=== PATIENT | female | born 1980 | race Caucasian/White ===

== ENCOUNTER 2020-09-04 00:28 | Emergency (ER) | payer OTHER ==
[~2020-09-04] VITALS: Ht 157.5 cm; Wt 65.8 kg
[2020-09-04] MEDS ORDERED: PANTOPRAZOLE SO40 MG PO (00:48)
[2020-09-04] MEDS ORDERED: PENICILLIN V P500 MG PO (03:12)
== END 2020-09-04 03:48 | disposition home or self-care (01) ==
LOC: ED 00:28
PROC: 0CQ0XZZ Repair Upper Lip, External Approach (ICD-10-PCS; principal; 2020-09-04)
DX: S02.5XXA Fracture of tooth (traumatic), initial encounter for closed fracture (principal); S01.511A Laceration without foreign body of lip, initial encounter; S60.221A Contusion of right hand, initial encounter; V22.4XXA Motorcycle driver injured in collision with two- or three-wheeled motor vehicle in traffic accident, initial encounter; F17.200 Nicotine dependence, unspecified, uncomplicated; Z79.899 Other long term (current) drug therapy
CPT/HCPCS: 40650; 70450; 70486; 72125; 73130; 99284-25; A9270

== ENCOUNTER 2022-09-28 22:45 | Observation (INO) | payer OTHER ==
[~2022-09-28] VITALS: Ht 157.5 cm; Wt 63.7 kg
--- OUTSIDE RECORDS SUMMARY | ~2022-09-28 | XMS | Continuity of Care Document ---
Demographics + + + | Address | [address] | | | [place] [address] | + + + | Preferred Language | Unknown | + + + | Marital Status | | + + + | Jehovah'S Witness Affiliation | Unknown | + + + | Race | White | + + + | Ethnic Group | Unknown | + + + Author + + + | Author | [facility] | + + + | Organization | [facility] | + + + | Address | [address] | | | [place] [address] | + + + | Phone | | + + + Care Team Providers + + + + | Care Pmp Certified Project Manager Name | Role | Phone | + + + + Unavailable | Unavailable | + + + + Allergies and Intolerances + + + + + + | date | description | facility | reaction | severity | + + + + + + | (no date) | No Known | [facility] | (no reaction) | (no severity) | | | Allergies | | | | + + + + + + Encounters No information. Functional Status No information. Immunizations No information. Medications No information. Problems + + + + | date | description | facility | + + + + | 2022-09-22 11:54 | ENCNTR SCREEN MAMMOGRAM | [facility] | | | FOR MALIGNANT NE | | + + + + | 2022-09-22 11:54 | ENCNTR SCREEN MAMMOGRAM | [facility] | | | FOR MALIGNANT NEOPLASM OF | | | | BREAST | | + + + + | 2022-09-22 12:00 | ENCNTR SCREEN MAMMOGRAM | [facility] | | | FOR [facility]NA[facility] NE | | + + + + Procedures No information. Results/Labs No information. Social History No information. Vital Signs No information."
--- OUTSIDE RECORDS SUMMARY | ~2022-09-28 | XMS | Continuity of Care Document ---
Demographics + + + | Address | [address] | | | [place] [address] | + + + | Preferred Language | Unknown | + + + | Marital Status | | + + + | Tenriism Affiliation | Unknown | + + + | Race | White | + + + | Ethnic Group | Unknown | + + + Author + + + | Author | [facility] | + + + | Organization | [facility] | + + + | Address | [address] | | | [place] [address] | + + + | Phone | | + + + Care Team Providers + + + + | Care Department Head [employer] Name | Role | Phone | + [...]
--- OUTSIDE RECORDS SUMMARY | ~2022-09-28 | XMS | Continuity of Care Document ---
Demographics + + + | Address | [address] | | | [place] [address] | + + + | Preferred Language | Unknown | + + + | Marital Status | | + + + | Shinto Affiliation | Unknown | + + + | Race | White | + + + | Ethnic Group | Unknown | + + + Author + + + | Author | [facility] | + + + | Organization | [facility] | + + + | Address | [address] | | | [place] [address] | + + + | Phone | | + + + Care Team Providers + + + + | Care Marine Oiler Name | Role | Phone | + [...]
[~2022-09-28 22:45] MED LIST: PANTOPRAZOLE SO40 MG PO; PENICILLIN V P500 MG PO
[2022-09-28] MEDS ORDERED: OMEPRAZOLE20 MG PO (22:55)
[2022-09-28] MEDS ORDERED: METOPROLOL SUCC50 MG PO (22:55)
[2022-09-28] MEDS ORDERED: HYDROXYZINE HCL50 MG PO (22:56)
[2022-09-28] MEDS ORDERED: BUPROPION XL150 MG PO (22:56)
[2022-09-28 23:13] LABS: BASOPHILS 1.5 % (0-2); EOSINOPHILS 3.5 % (0-6); HEMOGLOBIN 14.6 g/dL (12.0-18.0); LYMPHOCYTES 33.7 % (24-44); MCH 31.3 (27-36); MCHC 33.9 g/dl (30-36); MCV 92.5 fl (81-99); MONOCYTES 8.5 % (0-12); NEUTROPHILS 52.8 % (39-80); PLATELET COUNT 257 K/uL (140-440); RBC 4.64 M/ul (4.3-5.7); RDW 12.7 (10.5-15.0)
[2022-09-28 23:28] LABS: ALBUMIN 3.9 g/dL (3.4-5.0); ALBUMIN/GLOBULIN RATIO 1.08 (1.1-2.4); ANION GAP 10.6 (7-21); BILIRUBIN, TOTAL 0.2 ng/dL (0.2-1.0); BUN/CREATININE RATIO 14.13 (6.0-28.6); CALCIUM 9.6 mg/dL (8.5-10.1); CREATININE, SERUM 0.92 mg/dL (0.55-1.02); POTASSIUM 3.6 mmol/L (3.5-5.1); PROTEIN, TOTAL 7.5 g/dL (6.4-8.2)
[2022-09-28 23:46] LABS: BILIRUBIN, URINE NEGATIVE (negative); BLOOD/HGB, URINE NEGATIVE (Negative); KETONE, URINE NEGATIVE (Negative); LEUK ESTERASE, URINE NEGATIVE (negative); NITRITE, URINE NEGATIVE (negative)
[2022-09-29 03:08] VITALS: BP 148/96
[2022-09-29 04:57] VITALS: BP 133/89
--- NOTE | 2022-09-29 08:09 | CONS ---
[facility] [address] [place], [place] [address] Signed DATE OF CONSULTATION: 09/29/2022 CHIEF COMPLAINT: Epigastric abdominal pain. HISTORY OF PRESENT ILLNESS: Mack is a 42-year-old female, who 1 hour after eating last night developed epigastric abdominal pain with nausea. It was quite severe. She came to the emergency room for evaluation. Vital signs were unconcerning. She seemed to be tender in the epigastric area, but complained of diffuse abdominal pain. Laboratory work was unremarkable. EKG was unremarkable. Beta-hCG was negative. CT scan of the chest, abdomen and pelvis showed what might be some gallbladder wall thickening. The ultrasound then confirmed that the gallbladder wall was around 4 mm. She has a single small stone in the neck of the gallbladder. Common bile duct unremarkable at 5 mm. There was a negative Moore sign. She had received some IV fluids and pain control. I have been asked as a general surgeon to admit her overnight. She received Rocephin and Flagyl as well. She has done well overnight, although the Dilaudid made her little nauseated. We switched her over to some Toradol. This morning, she is doing well and her son is in the room with her. PAST MEDICAL HISTORY: Hypertension, anxiety and gastroesophageal reflux disease. PAST SURGICAL HISTORY: Includes an IUD episiotomy, upper and lower endoscopy with Dr. Brumfield. SOCIAL HISTORY: She smokes about half a pack of cigarettes a day. She does not drink. She has three children, all born vaginally. She lives in [place], [place]. She works for [employer]. She prefers the [facility]. Elizabeth Norman is her primary care provider. She drives. She is to [place] at [phone]. Her son is Jasson at [phone]. FAMILY HISTORY: Mom had colon cancer at age 50. Dad had prostate cancer. REVIEW OF SYSTEMS: She had 10 systems reviewed and she filled in a moderate amount of details as listed above. ALLERGIES: None. MEDICATIONS: 1. Metoprolol ER 50 mg p.o. daily. Electronically Signed By: JUSTUS ALLISON MD 09/29/22 0809 PATIENT NAME: MACK NANCE CONSULTATION DATE OF : 84 REPORT #: [id number] PHYSICIAN: JUSTUS ALLISON MD PCP: ELIZABETH NORMAN PA-C REPORT IS CONFIDENTIAL AND NOT TO BE RELEASED WITHOUT AUTHORIZATION [facility] [address] [place], [place] [address] Signed 2. Omeprazole 20 mg p.o. daily. 3. Hydroxyzine 50 mg p.o. q.6 hours p.r.n. for anxiety. PHYSICAL EXAMINATION: VITAL SIGNS: Her blood pressure is 133/89. Her heart rate was up a little bit from some pain before the Toradol at 90, respiratory rate 18, temperature is 97.6. She is 100% on room air. She is 5 feet 2 inches at 63 kg. Her body mass index is 25. GENERAL: Mack is a 42-year-old female, lying supine in her hospital bed. Her son is in the room along with the nurse. She is in no acute distress. She is not jaundiced. She is not systemically ill or toxic. LUNGS: Clear to auscultation bilaterally. HEART: Regular rate and rhythm without murmurs. ABDOMEN: Soft, flat and nontender. LABORATORY DATA: Her white blood count is 8, hemoglobin 14. Electrolytes unremarkable. UA negative. Total bilirubin 0.2, AST 18, ALT 33, alkaline phosphatase 48, lipase 183, albumin 3.9. Beta-hCG negative. EKG is normal sinus rhythm. RADIOGRAPHIC STUDIES: CT scan of the chest, abdomen and pelvis shows a little bit of gallbladder wall thickening. Ultrasound showed the fatty liver and the gallbladder wall is about 4 mm. There is a single small stone in the neck of the gallbladder. Common bile duct is 5 mm. The Moore sign is negative. ASSESSMENT AND PLAN: Mack is a 42-year-old female, who presents with chronic cholecystitis and cholelithiasis with significant biliary colic. I brought her a brochure on the gallbladder. We have reviewed it page by page. She understands the location and function of the gallbladder. We have discussed laparoscopic versus open cholecystectomy along with possible ERCP. She understands the expected intraop and postop course. There is risk including, but not limited to bleeding, infection, scarring, change in contour of the skin, damage to bowel, damage to the main bile duct, incisional hernias and other unforeseen comorbidities. She would like to proceed with gallbladder surgery later this morning. I have two small cases to do before we can bring her down to the OR. She has expressed understanding and would like to proceed. Justus Allison MD ALB/MODL Electronically Signed By: JUSTUS ALLISON MD 09/29/22 0809 PATIENT NAME: MACK NANCE CONSULTATION DATE OF : 84 REPORT #: [id number] PHYSICIAN: JUSTUS ALLISON MD PCP: ELIZABETH NORMAN PA-C REPORT IS CONFIDENTIAL AND NOT TO BE RELEASED WITHOUT AUTHORIZATION [facility] [address] [place] [address] Signed /[id number] cc: MD Elizabeth Avila PA-C Copies: JUSTUS ALLISON MD ~ Electronically Signed By: JUSTUS ALLISON MD 09/29/22 0809 PATIENT NAME: MACK NANCE CONSULTATION DATE OF : 84 REPORT #: [id number] PHYSICIAN: JUSTUS ALLISON MD PCP: ELIZABETH NORMAN PA-C REPORT IS CONFIDENTIAL AND NOT TO BE RELEASED WITHOUT AUTHORIZATION
[2022-09-29 08:41] VITALS: BP 148/91
[2022-09-29 12:35] VITALS: BP 131/82
[2022-09-29] MEDS ORDERED: MULTI VITAMIN1 EACH PO (13:49)
[2022-09-29] MEDS ORDERED: FISH OIL 1,0001 EAC6 PO (13:49)
[2022-09-29] MEDS ORDERED: PROBIOTIC1 EAC1 PO (13:49)
[2022-09-29 14:43] VITALS: BP 129/73
[2022-09-29] MEDS ORDERED: HYDROCODON-ACE1 EAC8 PO (15:18)
[2022-09-29 16:51] VITALS: BP 128/82
--- NOTE | 2022-09-29 22:39 | EKG ---
[facility] [address] [facility] [place] [address] Signed Normal sinus rhythm Normal ECG No previous ECGs available Confirmed by Last Fuentes MD () on 09/29/2022 10:39:06 PM Electronically Signed By: LAST FUENTES MD 09/29/229 PATIENT NAME: EVELYN NANCE Electrocardiogram DATE OF : 84 PHYSICIAN: LAST FUENTES MD REPORT #: [id number] REPORT IS CONFIDENTIAL AND NOT TO BE RELEASED WITHOUT AUTHORIZATION
--- NOTE | 2022-10-02 07:01 | OR ---
[facility] [address] [place], [place] [address] Signed DATE OF OPERATION: 09/29/2022 SURGEON: Justus Allison MD PREOPERATIVE DIAGNOSIS: Chronic cholecystitis with cholelithiasis. POSTOPERATIVE DIAGNOSES: 1. Chronic cholecystitis with cholelithiasis. 2. Cholesterolosis. PROCEDURE: Laparoscopic cholecystectomy with intraoperative cholangiogram. ESTIMATED BLOOD LOSS: Minimal. FINDINGS: Mack had a mildly dilated common bile duct on the intraoperative cholangiogram. No obvious filling defects. The contrast flowed readily through the ampulla into the duodenum. She had umsa-[id number] cholesterolosis. There were two stones each measuring a little over 5 mm. INDICATIONS: Mack is a 42-year-old female, who yesterday developed epigastric abdominal pain and nausea about an hour after she ate. It was quite severe. She came to emergency room for evaluation. She seemed to be tender in the epigastric area. Laboratory work was unremarkable. CT scan of the chest, abdomen and pelvis showed possibly some gallbladder wall thickening, but no obvious stones. An ultrasound was ordered and she does have a fatty liver. The gallbladder wall was a little thick at 4 mm. She seemed to have a single small stone in the neck of her gallbladder. The common bile duct was about 5 mm. She had a negative sonographic Moore sign. I have been asked to admit her in the middle of the night by the ER physician. She received Rocephin and Flagyl, IV fluids and pain control. This morning, she is doing quite well. Her son was with her in the room. I brought a brochure to share with her on the gallbladder. We discussed the location and function of the gallbladder. We reviewed laparoscopic versus open cholecystectomy. She understands expected intraop and postop course. We did review the risk including, but not limited to bleeding, infection, scarring, change in contour of the skin, damage to bowel, damage to main bile duct, incisional hernias and other unforeseen comorbidities. We also discussed the possibility of an ERCP to receive Electronically Signed By: JUSTUS ALLISON MD 10/02/22 0701 PATIENT NAME: MACK NANCE OPERATIVE REPORT DATE OF : 84 REPORT #: [id number] PHYSICIAN: JUSTUS ALLISON MD PCP: ELIZABETH GUEVARA PA-C REPORT IS CONFIDENTIAL AND NOT TO BE RELEASED WITHOUT AUTHORIZATION [facility] [address] [place] [id number] Signed stones in the common bile duct. She had expressed understanding and wished to proceed. PROCEDURE IN DETAIL: Mack was taken in the operating room and placed in the supine position under general endotracheal tube anesthesia. She was already on preoperative antibiotics along with subcutaneous Lovenox. SCDs were utilized. She was prepped and draped in the usual sterile fashion. All trocars were placed in usual positions under direct visualization of camera without difficulty. Pictures were taken throughout for photodocumentation. The gallbladder had been grasped and elevated in the right upper quadrant. She had some mild adhesions down around the neck of the gallbladder. They were taken down quite readily with blunt dissection. The triangle of Calot was carefully dissected out. A clip had been placed across the cystic artery and it was divided. We then inserted our intraoperative cholangiocatheter into the cystic duct. The intraoperative cholangiogram was found to be unremarkable. Her common bile duct was a little dilated, but we did not specifically see any filling defects. For some reason our fluoroscopy run did not take a new machine. However, the contrast did flow nicely through the ampulla and into the duodenum. After this the cystic duct stump was secured with a PDS Endoloop and two clips were placed on the cystic duct stump to dontae its location. The gallbladder was then carefully removed from the gallbladder fossa with the help of the cautery and placed into an EndoCatch bag. We used our laparoscopic suturing device to pass 0-Vicryl suture on either side of the fascia of the subxiphoid trocar site. This was tied down to close this fascia primarily. After this, all the gas was allowed to escape and all the trocars were removed along with the gallbladder. The gallbladder was opened on the back table by our circulating nurse for photodocumentation. She had cholesterolosis. There were two stones about 5 mm or so in diameter. We closed the fascia of the supraumbilical trocar site with interrupted [id number] and simple 0-Vicryl sutures. Local anesthetic was injected into all trocar sites. Each trocar site was irrigated and suctioned out until clear. The skin and dermis of each trocar site were closed with interrupted 3-0 subcuticular Monocryl sutures. Dry gauze and tape was applied to all incisions. After this, Mack was awakened from her anesthesia, extubated in the OR, and taken to recovery room in stable condition. Justus Allison MD ALB/MODL /[id number] Electronically Signed By: JUSTUS ALLISON MD 10/02/22 0701 PATIENT NAME: MACK NANCE OPERATIVE REPORT DATE OF : 84 REPORT #: [id number] PHYSICIAN: JUSTUS ALLISON MD PCP: ELIZABETH GUEVARA PA-C REPORT IS CONFIDENTIAL AND NOT TO BE RELEASED WITHOUT AUTHORIZATION [address] [address] Signed cc: MD Elizabeth Avila Copies: JUSTUS ALLISON MD ~ Electronically Signed By: JUSTUS ALLISON MD 10/02/22 0701 PATIENT NAME: MACK NANCE OPERATIVE REPORT DATE OF : 84 REPORT #: [id number] PHYSICIAN: JUSTUS ALLISON MD PCP: ELIZABETH GUEVARA PA-C REPORT IS CONFIDENTIAL AND NOT TO BE RELEASED WITHOUT AUTHORIZATION
--- NOTE | 2022-10-04 11:39 | PATH ---
[facility] [address] [facility] [place], [place] [address] Signed SPECIMEN(S): A GALLBLADDER WITH STONES SPECIMEN SOURCE: A. GALLBLADDER WITH STONES CLINICAL HISTORY: Epigastric abdominal pain, cholelithiasis, cholecystitis. FINAL PATHOLOGIC DIAGNOSIS: Gallbladder with stones: - Chronic calculous cholecystitis. - Mucosal cholesterolosis. JVR:waldo:RICKY MICROSCOPIC EXAMINATION: Histologic sections of all submitted blocks are examined by light microscopy. These findings, together with the gross examination, support the pathologic diagnosis. GROSS DESCRIPTION: The specimen, labeled and designated "Manju, S" and designated on the requisition "gallbladder with stones," is received in formalin and consists of Specimen: Previously opened gallbladder. Dimensions: 5.9 x 5.0 x 1.2 cm. Serosa: [place]-tran smooth. Cystic Duct: Received open, obstruction cannot be determined, margin inked black and shaved. Calculi: Two yellow bosselated calculi (0.5 and 0.6 cm in greatest dimension). Mucosa: Brown-tran and velvety with yellow flecking. Wall thickness: 0.6 cm. Lymph node: No pericystic lymph nodes are grossly identified. Additional: None. Pan Devulcanizer sections are submitted in (A1). AC (under the direct supervision of a pathologist) The Gross Description was prepared using a voice recognition system. The report was reviewed for accuracy; however, sound-alike word errors, addition and/or deletions may occur. If there is any question about this report, please contact Client Services. PERFORMING LABORATORY: Technical component was performed by [employer], Devyn Santiago, PATIENT NAME: EVELYN NANCE PATHOLOGY DATE OF : 84 REPORT #: [id number] PHYSICIAN: NAVEED ARTEAGA PCP: ELIZABETH GUEVARA PA-C REPORT IS CONFIDENTIAL AND NOT TO BE RELEASED WITHOUT AUTHORIZATION [facility] [address] [facility] [place], [place] [address] [place] [address] (CLIA# [id number]). Professional [facility], [address] [place] [id number] (CLIA#: [id number]). Diagnostician: Lan Franco MD Pathologist Electronically Signed 10/04/2022 Copies: ~ PATIENT NAME: EVELYN NANCE PATHOLOGY DATE OF : 84 REPORT #: [id number] PHYSICIAN: NAVEED ARTEAGA PCP: ELIZABETH GUEVARA PA-C REPORT IS CONFIDENTIAL AND NOT TO BE RELEASED WITHOUT AUTHORIZATION
== END 2022-09-29 17:00 | disposition home or self-care (01) ==
LOC: ED 22:45 → MS 22:46
PROVIDERS: Emergency Medicine; ADMIT Colon & Rectal Surgery; ATTEND Colon & Rectal Surgery
PROC: BF121ZZ Fluoroscopy of Gallbladder using Low Osmolar Contrast (ICD-10-PCS; 2022-09-29)
PROC: 0FT44ZZ Resection of Gallbladder, Percutaneous Endoscopic Approach (ICD-10-PCS; principal; 2022-09-29 10:00)
DX: K80.10 Calculus of gallbladder with chronic cholecystitis without obstruction (principal); I10 Essential (primary) hypertension; F41.9 Anxiety disorder, unspecified; K21.9 Gastro-esophageal reflux disease without esophagitis
CPT/HCPCS: 00790; 36415; 74177; 74300; 76705; 80053; 81003; 83690; 84703; 85025; 93005; 93010; 96365; 96366; 96368; 96372; 96375; 96376; 99285-25; A9270; C9113; G0378; J0131; J0696; J1100; J1170; J1650; J1885; J2001; J2405; J2704; J2765; J3010; J3475; J3490; J7030; J7121; Q9967

== ENCOUNTER 2024-10-23 20:53 | Emergency (ER) | payer OTHER ==
[~2024-10-23] VITALS: Ht 157.5 cm; Wt 68.5 kg
[~2024-10-23 20:53] MED LIST changes: +BUPROPION XL150 MG PO; +FISH OIL 1,0001 EAC6 PO; +HYDROCODON-ACE1 EAC8 PO; +HYDROXYZINE HCL50 MG PO; +METOPROLOL SUCC50 MG PO; +MULTI VITAMIN1 EACH PO; +OMEPRAZOLE20 MG PO; +PROBIOTIC1 EAC1 PO
[2024-10-23] MEDS ORDERED: DIPHTH,PERTUSS(ACELL),TET VAC 0.5 ML SYRINGE IM ONE (21:15)
[2024-10-23] MEDS ORDERED: IBUPROFEN 800 MG TAB PO ONE (21:15)
[2024-10-23 22:25] VITALS: BP 150/100
== END 2024-10-23 22:27 | disposition home or self-care (01) ==
LOC: ED 20:53
DX: M20.012 Mallet finger of left finger(s) (principal); I10 Essential (primary) hypertension; F17.200 Nicotine dependence, unspecified, uncomplicated; Z79.899 Other long term (current) drug therapy
CPT/HCPCS: 73140; 90471; 90715; 99283-25; A9270